=== PATIENT | male | born 1935 | race Two or more races ===

== ENCOUNTER 2017-06-21 20:20 | Inpatient (IN) | payer MEDICARE, OTHER ==
[~2017-06-21] VITALS: Ht 170.2 cm; Wt 78.5 kg
[~2017-06-21 20:20] MED LIST: METFORMIN HCL500 M1 ORAL
[2017-06-21 21:23] LABS: EOSINOPHILS % (AUTO) 0.3 % (0.0-3.0); HEMATOCRIT 51.4 % (42.0-52.0); HEMOGLOBIN 17.6 G/DL (14.2-18.0); LYMPHOCYTES % (AUTO) 8.6 % (20.0-45.0); MEAN CORPUSCULAR VOLUME 83 FL (80-99); MONOCYTES % (AUTO) 6.5 % (1.0-10.0); NEUTROPHILS % (AUTO) 83.6 % (45.0-75.0); PLATELET COUNT 229 K/UL (150-450); RED BLOOD COUNT 6.22 M/UL (4.70-6.10); RED CELL DISTRIBUTION WIDTH 12.2 % (11.6-14.8)
[2017-06-21 21:28] LABS: ANION GAP 11 mmol/L (5-15); BLOOD UREA NITROGEN 17 mg/dL (7-18); CALCIUM 8.9 MG/DL (8.5-10.1); CARBON DIOXIDE 26 MMOL/L (21-32); CHLORIDE 107 MMOL/L (98-107); CREATININE 1.4 MG/DL (0.55-1.30); INR 1.1 (0.9-1.1); POTASSIUM 3.6 MMOL/L (3.5-5.1); SODIUM 143 MMOL/L (136-145)
[2017-06-21 21:33] LABS: ALANINE AMINOTRANSFERASE 36 U/L (12-78); ALBUMIN 3.6 G/DL (3.4-5.0); ALBUMIN/GLOBULIN RATIO 0.9 (1.0-2.7); ALKALINE PHOSPHATASE 102 U/L (46-116); ASPARTATE AMINO TRANSFERASE 22 U/L (15-37); BILIRUBIN,TOTAL 0.5 MG/DL (0.2-1.0)
[2017-06-21] MEDS ORDERED: Morphine Sulfate 2mg/ml Inj IVP PRN (22:30)
[2017-06-21] MEDS ORDERED: Zolpidem 5mg tab ORAL PRN (22:30)
[2017-06-21] MEDS ORDERED: Miralax 17gm pkt ORAL PRN (22:30)
[2017-06-21] MEDS ORDERED: LORazepam Inj 2mg/ml 1ml IV PRN (22:30)
[2017-06-21] MEDS ORDERED: Mylanta II UD 30ml ORAL PRN (22:30)
[2017-06-21] MEDS ORDERED: Lidocaine 1% 10mg/ml/Epi 0.005mg/ml 30ml vial INJ ONE (22:30)
[2017-06-21] MEDS ORDERED: Bacitracin Oint UD TOPIC ONE (23:24)
--- NOTE | 2017-06-21 23:29 | Emergency Room Report ---
History of Present Illness General Chief Complaint: Laceration Source: Patient Present Illness HPI Patient is an 81-year-old male brought in by EMS after increased facial pain. Patient had reportedly fallen. He does not recall events. The patient states that he might have lost his balance. He denies any os of consciousness. History is limited by patient's mental status and poor historian. The patient states he lives alone and his is . He states he has children who live in [place]. Allergies: Coded Allergies: No Known Allergies (Unverified , 06/21/17) Patient History Past Medical History: unable to obtain Reviewed Nursing Documentation: PMH: Agreed; PSxH: Agreed Nursing Documentation-PMH Hx Diabetes: Yes Review of Systems All Other Systems: limited - by poor historian Physical Exam Vital Signs Date Time Temp Pulse Resp B/P (MAP) Pulse Ox O2 Delivery O2 Flow Rate FiO2 06/21/17 20:05 98.5 118 18 149/87 97 Room Air 98.4 Sp02 EP Interpretation: reviewed, normal General Appearance: normal inspection, alert, no apparent distress, GCS 15 Head: normocephalic, atraumatic Eyes: normal eye exam, PERRL, EOMI, lids + conjunctiva normal, no hyphema, no racoon eyes ENT: normal ENT inspection, TMs + canals normal, oropharynx normal, no osei signs Neck: trach midline, no bony tend, full range of motion without pain Respiratory: effort normal, no retractions, clear to auscultation, chest symmetrical, palpation of chest normal, speaking in full sentences Cardiovascular: regular rate, rhythm, no JVD Cardiovascular #2: 2+ radial (R), 2+ radial (L), 2+ dorsalis pedis (R), 2+ dorsalis pedis (L) Gastrointestinal: normal inspection, non-tender, non-distended, no rebound/ guarding, normal bowel sounds Genitourinary: normal inspection Musculoskeletal: normal ROM, non-tender, back normal Skin: normal palpation, other - lip laceration, 3 cm into muscle Lymphatic: normal inspection Neurologic: normal inspection, CN II-XII intact, oriented x3, sensory intact, motor strength/tone normal, normal speech Psychiatric: normal inspection, memory normal, mood normal, no suicidal/ homicidal ideation Procedures Laceration/Wound Repair Laceration/Wound Repair : Consent: Emergent Wound Location: face Wound's Depth, Shape: into muscle, stellate Wound Length (cm): 3 Wound Explored: clean Irrigated w/ Saline (ccs): 100 Betadine Prep?: Yes Anesthesia: Lidocaine w/ Epi Volume Anesthetic (ccs): 10 Wound Debrided: minimal Wound Repaired With: sutures Suture Size/Type: 5:0 Number of Sutures: 9 Layer Closure?: Yes Deep Layer Suture Size/Type: 5:0 Number Deep Layer Sutures: 5 Sterile Dressing Applied?: Yes Patient Tolerated: Well Complications: None Medical Decision Making Diagnostic Impression: Primary Impression: Fall Additional Impressions: Facial laceration Contusion of head ER Course Patient presented for fall.Differential diagnosis included was not limited to neck fracture, CVA, close head injury, syncopal episode, basilar ischemia. Because of complexity of patient's case laboratory testing and imaging studies were ordered. The CT the head read by radiology showed no evidence of acute hemorrhage or CVA. CT of facial bones read by radiology showed no evidence of acute fracture. The patient's facial laceration was irrigated and closed with 2 layers. Patient tolerated this well.Patient was noted to be somewhat confused. The patient states he lives alone. Dr. Warren Salazar was contacted for inpatient management due to need for monitoring and rechecks mental status Labs Test 06/21/17 20:55 White Blood Count 13.0 K/UL (4.8-10.8) Red Blood Count 6.22 M/UL (4.70-6.10) Hemoglobin 17.6 G/DL (14.2-18.0) Hematocrit 51.4 % (42.0-52.0) Mean Corpuscular Volume 83 FL (80-99) Mean Corpuscular Hemoglobin 28.3 PG (27.0-31.0) Mean Corpuscular Hemoglobin Concent 34.2 G/DL (32.0-36.0) Red Cell Distribution Width 12.2 % (11.6-14.8) Platelet Count 229 K/UL (150-450) Mean Platelet Volume 6.7 FL (6.5-10.1) Neutrophils (%) (Auto) 83.6 % (45.0-75.0) Lymphocytes (%) (Auto) 8.6 % (20.0-45.0) Monocytes (%) (Auto) 6.5 % (1.0-10.0) Eosinophils (%) (Auto) 0.3 % (0.0-3.0) Basophils (%) (Auto) 1.0 % (0.0-2.0) Prothrombin Time 11.7 SEC (9.30-11.50) Prothromb Time International Ratio 1.1 (0.9-1.1) Activated Partial Thromboplast Time 26 SEC (23-33) Sodium Level 143 MMOL/L (136-145) Potassium Level 3.6 MMOL/L (3.5-5.1) Chloride Level 107 MMOL/L (98-107) Carbon Dioxide Level 26 MMOL/L (21-32) Anion Gap 11 mmol/L (5-15) Blood Urea Nitrogen 17 mg/dL (7-18) Creatinine 1.4 MG/DL (0.55-1.30) Estimat Glomerular Filtration Rate mL/min (>60) Glucose Level 185 MG/DL (74-106) Calcium Level 8.9 MG/DL (8.5-10.1) Total Bilirubin 0.5 MG/DL (0.2-1.0) Aspartate Amino Transf (AST/SGOT) 22 U/L (15-37) Alanine Aminotransferase (ALT/SGPT) 36 U/L (12-78) Alkaline Phosphatase 102 U/L (46-116) Total Protein 7.7 G/DL (6.4-8.2) Albumin 3.6 G/DL (3.4-5.0) Globulin 4.1 g/dL Albumin/Globulin Ratio 0.9 (1.0-2.7) Last Vital Signs Date Time Temp Pulse Resp B/P (MAP) Pulse Ox O2 Delivery O2 Flow Rate FiO2 06/21/17 20:05 98.5 118 18 149/87 97 Room Air 98.4 Status: unchanged Disposition: PLACE IN OBSERVATION Condition: Serious Referrals: NOT CHOSEN DIEGO/,REFERRING (PCP) Neo Matos Jun 21, 2017 23:29
[2017-06-21 23:38] VITALS: BP 180/90
[2017-06-22] VITALS (7 sets, daily range): BP systolic 140–164; BP diastolic 70–85
[2017-06-22] MEDS: NovoLOG Insulin Flexpen SUBQ SCH ×4 (06:05→20:53)
[2017-06-22 07:53] LABS: BASOPHILS % (AUTO) 0.5 % (0.0-2.0); HEMATOCRIT 47.8 % (42.0-52.0); HEMOGLOBIN 16.4 G/DL (14.2-18.0); LYMPHOCYTES % (AUTO) 17.1 % (20.0-45.0); MEAN CORPUSCULAR VOLUME 83 FL (80-99); MONOCYTES % (AUTO) 8.9 % (1.0-10.0); NEUTROPHILS % (AUTO) 72.5 % (45.0-75.0); PLATELET COUNT 218 K/UL (150-450); RED BLOOD COUNT 5.76 M/UL (4.70-6.10); RED CELL DISTRIBUTION WIDTH 11.9 % (11.6-14.8); WHITE BLOOD COUNT 10.3 K/UL (4.8-10.8)
[2017-06-22 08:13] LABS: ALANINE AMINOTRANSFERASE 32 U/L (12-78); ALBUMIN 3.1 G/DL (3.4-5.0); ALBUMIN/GLOBULIN RATIO 0.8 (1.0-2.7); ALKALINE PHOSPHATASE 83 U/L (46-116); ANION GAP 7 mmol/L (5-15); ASPARTATE AMINO TRANSFERASE 25 U/L (15-37); BILIRUBIN,TOTAL 0.8 MG/DL (0.2-1.0); BLOOD UREA NITROGEN 12 mg/dL (7-18); CALCIUM 8.5 MG/DL (8.5-10.1); CARBON DIOXIDE 30 MMOL/L (21-32); CHLORIDE 106 MMOL/L (98-107); CHOLESTEROL 113 MG/DL (< 200); HDL CHOLESTEROL 50 MG/DL (40-60); POTASSIUM 3.3 MMOL/L (3.5-5.1); SODIUM 143 MMOL/L (136-145); TRIGLYCERIDES 29 MG/DL (30-150)
[2017-06-22] MEDS: Heparin 5000 units/ml inj SUBQ SCH ×2 (08:50→20:54)
--- NOTE | 2017-06-22 09:55 | Diagnostic Imaging Report ---
Indications: Separate Technique: Spiral acquisitions obtained through the brain. Angled axial and coronal 5 x 5 mm slices were reconstructed. Total dose length product 1446.06 mGycm. CTDI vol(s) 70.38 mGy. Dose reduction achieved using automated exposure control Comparison: No Findings: No acute intracranial hemorrhage or edema. No mass effect or midline shift. There is age-related enlargement of the ventricles and extra axial CSF spaces. There is encephalomalacia of the posterior left frontal lobe. There is periventricular deep white matter low attenuation, consistent with chronic ischemic change. 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 The sinuses are clear. There is evidence of prior bilateral cataract surgery. Impression: Chronic and age-related changes as described, including old infarcts Negative for acute intracranial bleed or mass effect This agrees with the preliminary interpretation provided overnight by [facility]erad[facility] service. The CT scanner at [facility] is accredited by the [employer] and the scans are performed using protocols designed to limit radiation exposure to as low as reasonably achievable to attain images of sufficient resolution adequate for diagnostic evaluation.
--- NOTE | 2017-06-22 09:58 | Diagnostic Imaging Report ---
Indications: Pain Technique: Spiral images obtained through the facial bones. No IV contrast utilized. Multiplanar reconstructions were generated.Total dose length product 607.04 mGycm. CTDIvol(s) 28.19 mGy. Dose reduction achieved using automated exposure control Comparison: none Findings: There is evidence of soft tissue trauma to the upper lip. No acute fractures. No worrisome sinus opacification. There is minimal ethmoid sinus mucosal disease. The optic globes are intact. There is evidence of bilateral prior cataract surgery. Patient is edentulous. Impression: Evidence of soft tissue trauma as described No acute bony trauma Minimal sinus disease This agrees with the preliminary interpretation provided overnight by [facility] service. The CT scanner at [facility] is accredited by the [employer] and the scans are performed using protocols designed to limit radiation exposure to as low as reasonably achievable to attain images of sufficient resolution adequate for diagnostic evaluation.
--- NOTE | 2017-06-22 12:11 | Consultation ---
History of Present Illness General Date patient seen: Jun 22, 2017 Chief Complaint: AMS Present Illness HPI the pt is an 81 yo male with hx of mmp possible alcohol use came to er after a fall the pt apparently was confused and was a poor historian. the pt was aaox4 during my eval and was unable to recall the fall. the pt stated that he lives alone and all his family live in [facility]. the pts head ct was consistent with mini infarcts and senile changes. the pt has impairment of memory. The pt denied drinking alcohol on a daily basis. the pt has poor insight and minimizes his situation. the pts passed four years ago and the pt feels lonely. He endorses depressed mood, anhedonia and low energy. Allergies: Coded Allergies: No Known Allergies (Unverified , 06/21/17) Medication History Scheduled Metformin Hcl* (Metformin Hcl*), 500 MG ORAL TWICE A DAY, (Reported) Patient History Limited by: medical condition History Provided By: Patient, Medical Record, PMD Healthcare decision maker Resuscitation status Full Code Advanced Directive on File Past Medical/Surgical History Past Medical/Surgical History: (1) Acute encephalopathy (2) Fall (3) Facial laceration (4) Contusion of head Review of Systems Psychiatric: Reports: anxiety, depressed feelings, emotional problems Physical Exam General Appearance: WD/WN, no apparent distress, alert Neurologic: oriented x 3, responsive, depressed affect Last 24 Hour Vital Signs Date Time Temp Pulse Resp B/P (MAP) Pulse Ox O2 Delivery O2 Flow Rate FiO2 06/22/17 08:00 97.7 79 20 142/71 95 Room Air 97.7 06/22/17 07:02 163/85 06/22/17 04:00 97.3 83 20 163/85 95 Room Air 97.3 06/22/17 00:30 97.3 83 16 163/83 96 Room Air 06/22/17 00:09 97.3 83 16 163/83 96 Room Air 97.3 06/22/17 00:00 97.4 78 20 164/85 96 Room Air 97.4 06/21/17 23:38 97.3 89 14 180/90 95 Room Air 97.3 06/21/17 20:05 98.5 118 18 149/87 97 Room Air 98.4 Intake and Output 06/21/17 06/22/17 19:00 07:00 Intake Total 260 ml Balance 260 ml Intake Oral 260 ml # Voids 1 Laboratory Tests Test 06/21/17 20:55 06/22/17 06:35 White Blood Count 13.0 K/UL (4.8-10.8) H 10.3 K/UL (4.8-10.8) Red Blood Count 6.22 M/UL (4.70-6.10) H 5.76 M/UL (4.70-6.10) Hemoglobin 17.6 G/DL (14.2-18.0) 16.4 G/DL (14.2-18.0) Hematocrit 51.4 % (42.0-52.0) 47.8 % (42.0-52.0) Mean Corpuscular Volume 83 FL (80-99) 83 FL (80-99) Mean Corpuscular Hemoglobin 28.3 PG (27.0-31.0) 28.5 PG (27.0-31.0) Mean Corpuscular Hemoglobin Concent 34.2 G/DL (32.0-36.0) 34.3 G/DL (32.0-36.0) Red Cell Distribution Width 12.2 % (11.6-14.8) 11.9 % (11.6-14.8) Platelet Count 229 K/UL (150-450) 218 K/UL (150-450) Mean Platelet Volume 6.7 FL (6.5-10.1) 7.2 FL (6.5-10.1) Neutrophils (%) (Auto) 83.6 % (45.0-75.0) H 72.5 % (45.0-75.0) Lymphocytes (%) (Auto) 8.6 % (20.0-45.0) L 17.1 % (20.0-45.0) L Monocytes (%) (Auto) 6.5 % (1.0-10.0) 8.9 % (1.0-10.0) Eosinophils (%) (Auto) 0.3 % (0.0-3.0) 1.0 % (0.0-3.0) Basophils (%) (Auto) 1.0 % (0.0-2.0) 0.5 % (0.0-2.0) Prothrombin Time 11.7 SEC (9.30-11.50) H Prothromb Time International Ratio 1.1 (0.9-1.1) Activated Partial Thromboplast Time 26 SEC (23-33) Sodium Level 143 MMOL/L (136-145) 143 MMOL/L (136-145) Potassium Level 3.6 MMOL/L (3.5-5.1) 3.3 MMOL/L (3.5-5.1) L Chloride Level 107 MMOL/L (98-107) 106 MMOL/L (98-107) Carbon Dioxide Level 26 MMOL/L (21-32) 30 MMOL/L (21-32) Anion Gap 11 mmol/L (5-15) 7 mmol/L (5-15) Blood Urea Nitrogen 17 mg/dL (7-18) 12 mg/dL (7-18) Creatinine 1.4 MG/DL (0.55-1.30) H 1.0 MG/DL (0.55-1.30) Estimat Glomerular Filtration Rate mL/min (>60) mL/min (>60) Glucose Level 185 MG/DL (74-106) H 119 MG/DL (74-106) H Calcium Level 8.9 MG/DL (8.5-10.1) 8.5 MG/DL (8.5-10.1) Total Bilirubin 0.5 MG/DL (0.2-1.0) 0.8 MG/DL (0.2-1.0) Aspartate Amino Transf (AST/SGOT) 22 U/L (15-37) 25 U/L (15-37) Alanine Aminotransferase (ALT/SGPT) 36 U/L (12-78) 32 U/L (12-78) Alkaline Phosphatase 102 U/L (46-116) 83 U/L (46-116) Total Protein 7.7 G/DL (6.4-8.2) 6.8 G/DL (6.4-8.2) Albumin 3.6 G/DL (3.4-5.0) 3.1 G/DL (3.4-5.0) L Globulin 4.1 g/dL 3.7 g/dL Albumin/Globulin Ratio 0.9 (1.0-2.7) L 0.8 (1.0-2.7) L Triglycerides Level 29 MG/DL (30-150) L Cholesterol Level 113 MG/DL (< 200) LDL Cholesterol 66 mg/dL (<100) HDL Cholesterol 50 MG/DL (40-60) Cholesterol/HDL Ratio 2.3 (3.3-4.4) L Height (Feet): 5 Height (Inches): 7.00 Weight (Pounds): 173 Medications Current Medications Medications (Trade) Dose Ordered Sig/Gracie Route PRN Reason Start Time Stop Time Status Last Admin Dose Admin Acetaminophen (Tylenol) 650 mg Q4H PRN ORAL fever 06/21/17 22:30 07/21/17 22:29 Al Hydroxide/Mg Hydroxide (Mylanta II) 30 ml Q6H PRN ORAL dyspepsia 06/21/17 22:30 07/21/17 22:29 Clonidine HCl (Catapres Tab) 0.1 mg Q6H PRN ORAL For High Blood Pressure 06/22/17 07:00 07/22/17 06:59 06/22/17 07:02 Dextrose (Dextrose 50%) STAT PRN IV Hypoglycemia 06/21/17 22:30 07/21/17 22:29 Dextrose (Dextrose 50%) STAT PRN IV Hypoglycemia 06/21/17 22:30 07/21/17 22:29 Heparin Sodium (Porcine) (Heparin 5000 units/ml) 5,000 units EVERY 12 HOURS SUBQ 06/22/17 09:00 07/22/17 08:59 06/22/17 08:50 Insulin Aspart (NovoLOG) BEFORE MEALS AND HS SUBQ 06/22/17 06:30 07/22/17 06:29 06/22/17 06:05 Lorazepam (Ativan 2mg/ml 1ml) 0.5 mg Q4H PRN IV For Anxiety 06/21/17 22:30 06/28/17 22:29 Morphine Sulfate (Morphine Sulfate) 1 mg EVERY 4 HOURS PRN IVP For Pain 06/21/17 22:30 06/28/17 22:29 Ondansetron HCl (Zofran) 4 mg Q6H PRN IVP Nausea & Vomiting 06/21/17 22:30 07/21/17 22:29 Polyethylene Glycol (Miralax) 17 gm HSPRN PRN ORAL Constipation 06/21/17 22:30 07/21/17 22:29 Zolpidem Tartrate (Ambien) 5 mg HSPRN PRN ORAL Insomnia 06/21/17 22:30 06/28/17 22:29 Assessment/Plan Status: stable Assessment/Plan encephalopathy improved\ mdd cognitive impairment ?alcohol abuse? prozac 20mg qam valium prn and will start thiamine and folate Cecilio Singh M.D. Jun 22, 2017 12:11
[2017-06-22] MEDS ORDERED: Morphine Sulfate 4mg/ml Inj IVP PRN (13:00)
--- NOTE | 2017-06-22 15:07 | Consultation ---
History of Present Illness General Date patient seen: Jun 22, 2017 Chief Complaint: Laceration Referring physician: dr Salazar Reason for Consultation: inpatient management Present Illness HPI 81-year-old male with hx of DM brought in by EMS after increased facial pain after an accidental fall. He does not recall events. The patient states that he might have lost his balance. He denies any os of consciousness. History is limited by patient's mental status and poor historian. The patient states he lives alone and his is . He states he has children who live in [place]. Allergies: Coded Allergies: No Known Allergies (Unverified , 06/21/17) Medication History Scheduled Metformin Hcl* (Metformin Hcl*), 500 MG ORAL TWICE A DAY, (Reported) Patient History Healthcare decision maker Resuscitation status Full Code Advanced Directive on File Past Medical/Surgical History Past Medical/Surgical History: (1) Diabetes mellitus Review of Systems All Other Systems: negative except mentioned in HPI Physical Exam General Appearance: WD/WN Lines, tubes and drains: peripheral HEENT: normocephalic, atraumatic Neck: non-tender, normal alignment Respiratory/Chest: chest wall non-tender, lungs clear Breasts: no masses Cardiovascular/Chest: normal rate Abdomen: non tender, soft Genitourinary/Rectal: normal genital exam Extremities: normal range of motion Skin Exam: normal pigmentation Last 24 Hour Vital Signs Date Time Temp Pulse Resp B/P (MAP) Pulse Ox O2 Delivery O2 Flow Rate FiO2 06/22/17 12:00 98.0 81 18 140/70 97 Room Air 98.0 06/22/17 08:00 97.7 79 20 142/71 95 Room Air 97.7 06/22/17 07:02 163/85 06/22/17 04:00 97.3 83 20 163/85 95 Room Air 97.3 06/22/17 00:30 97.3 83 16 163/83 96 Room Air 06/22/17 00:09 97.3 83 16 163/83 96 Room Air 97.3 06/22/17 00:00 97.4 78 20 164/85 96 Room Air 97.4 06/21/17 23:38 97.3 89 14 180/90 95 Room Air 97.3 06/21/17 20:05 98.5 118 18 149/87 97 Room Air 98.4 Intake and Output 06/21/17 06/22/17 19:00 07:00 Intake Total 260 ml Balance 260 ml Intake Oral 260 ml # Voids 1 Laboratory Tests Test 06/21/17 20:55 06/22/17 06:35 White Blood Count 13.0 K/UL (4.8-10.8) H 10.3 K/UL (4.8-10.8) Red Blood Count 6.22 M/UL (4.70-6.10) H 5.76 M/UL (4.70-6.10) Hemoglobin 17.6 G/DL (14.2-18.0) 16.4 G/DL (14.2-18.0) Hematocrit 51.4 % (42.0-52.0) 47.8 % (42.0-52.0) Mean Corpuscular Volume 83 FL (80-99) 83 FL (80-99) Mean Corpuscular Hemoglobin 28.3 PG (27.0-31.0) 28.5 PG (27.0-31.0) Mean Corpuscular Hemoglobin Concent 34.2 G/DL (32.0-36.0) 34.3 G/DL (32.0-36.0) Red Cell Distribution Width 12.2 % (11.6-14.8) 11.9 % (11.6-14.8) Platelet Count 229 K/UL (150-450) 218 K/UL (150-450) Mean Platelet Volume 6.7 FL (6.5-10.1) 7.2 FL (6.5-10.1) Neutrophils (%) (Auto) 83.6 % (45.0-75.0) H 72.5 % (45.0-75.0) Lymphocytes (%) (Auto) 8.6 % (20.0-45.0) L 17.1 % (20.0-45.0) L Monocytes (%) (Auto) 6.5 % (1.0-10.0) 8.9 % (1.0-10.0) Eosinophils (%) (Auto) 0.3 % (0.0-3.0) 1.0 % (0.0-3.0) Basophils (%) (Auto) 1.0 % (0.0-2.0) 0.5 % (0.0-2.0) Prothrombin Time 11.7 SEC (9.30-11.50) H Prothromb Time International Ratio 1.1 (0.9-1.1) Activated Partial Thromboplast Time 26 SEC (23-33) Sodium Level 143 MMOL/L (136-145) 143 MMOL/L (136-145) Potassium Level 3.6 MMOL/L (3.5-5.1) 3.3 MMOL/L (3.5-5.1) L Chloride Level 107 MMOL/L (98-107) 106 MMOL/L (98-107) Carbon Dioxide Level 26 MMOL/L (21-32) 30 MMOL/L (21-32) Anion Gap 11 mmol/L (5-15) 7 mmol/L (5-15) Blood Urea Nitrogen 17 mg/dL (7-18) 12 mg/dL (7-18) Creatinine 1.4 MG/DL (0.55-1.30) H 1.0 MG/DL (0.55-1.30) Estimat Glomerular Filtration Rate mL/min (>60) mL/min (>60) Glucose Level 185 MG/DL (74-106) H 119 MG/DL (74-106) H Calcium Level 8.9 MG/DL (8.5-10.1) 8.5 MG/DL (8.5-10.1) Total Bilirubin 0.5 MG/DL (0.2-1.0) 0.8 MG/DL (0.2-1.0) Aspartate Amino Transf (AST/SGOT) 22 U/L (15-37) 25 U/L (15-37) Alanine Aminotransferase (ALT/SGPT) 36 U/L (12-78) 32 U/L (12-78) Alkaline Phosphatase 102 U/L (46-116) 83 U/L (46-116) Total Protein 7.7 G/DL (6.4-8.2) 6.8 G/DL (6.4-8.2) Albumin 3.6 G/DL (3.4-5.0) 3.1 G/DL (3.4-5.0) L Globulin 4.1 g/dL 3.7 g/dL Albumin/Globulin Ratio 0.9 (1.0-2.7) L 0.8 (1.0-2.7) L Triglycerides Level 29 MG/DL (30-150) L Cholesterol Level 113 MG/DL (< 200) LDL Cholesterol 66 mg/dL (<100) HDL Cholesterol 50 MG/DL (40-60) Cholesterol/HDL Ratio 2.3 (3.3-4.4) L Height (Feet): 5 Height (Inches): 7.00 Weight (Pounds): 173 Medications Current Medications Medications (Trade) Dose Ordered Sig/Gracie Route PRN Reason Start Time Stop Time Status Last Admin Dose Admin Acetaminophen (Tylenol) 650 mg Q4H PRN ORAL fever 06/21/17 22:30 07/21/17 22:29 Al Hydroxide/Mg Hydroxide (Mylanta II) 30 ml Q6H PRN ORAL dyspepsia 06/21/17 22:30 07/21/17 22:29 Clonidine HCl (Catapres Tab) 0.1 mg Q6H PRN ORAL For High Blood Pressure 06/22/17 07:00 07/22/17 06:59 06/22/17 07:02 Dextrose (Dextrose 50%) STAT PRN IV Hypoglycemia 06/21/17 22:30 07/21/17 22:29 Dextrose (Dextrose 50%) STAT PRN IV Hypoglycemia 06/21/17 22:30 07/21/17 22:29 Diazepam (Valium) 10 mg Q6H PRN ORAL For Anxiety 06/22/17 13:00 06/29/17 12:59 Fluoxetine HCl (PROzac) 20 mg DAILY ORAL 06/23/17 09:00 07/23/17 08:59 Folic Acid (Folate) 1 mg DAILY ORAL 06/23/17 09:00 07/23/17 08:59 Heparin Sodium (Porcine) (Heparin 5000 units/ml) 5,000 units EVERY 12 HOURS SUBQ 06/22/17 09:00 07/22/17 08:59 06/22/17 08:50 Insulin Aspart (NovoLOG) BEFORE MEALS AND HS SUBQ 06/22/17 06:30 07/22/17 06:29 06/22/17 12:32 Morphine Sulfate (Morphine Sulfate) 1 mg Q4H PRN IVP Pain 06/22/17 13:00 06/28/17 12:59 Ondansetron HCl (Zofran) 4 mg Q6H PRN IVP Nausea & Vomiting 06/21/17 22:30 07/21/17 22:29 Polyethylene Glycol (Miralax) 17 gm HSPRN PRN ORAL Constipation 06/21/17 22:30 07/21/17 22:29 Thiamine HCl (Vitamin B1) 100 mg DAILY ORAL 06/23/17 09:00 07/23/17 08:59 Zolpidem Tartrate (Ambien) 5 mg HSPRN PRN ORAL Insomnia 06/21/17 22:30 06/28/17 22:29 Assessment/Plan Problem List: (1) Acute encephalopathy ICD Codes: G93.40 - Encephalopathy, unspecified SNOMED: 26164838, 173881712 (2) ATN (acute tubular necrosis) ICD Codes: N17.0 - Acute kidney failure with tubular necrosis SNOMED: 72983058 (3) Facial laceration ICD Codes: S01.81XA - Laceration without foreign body of other part of head, initial encounter SNOMED: 720751041 (4) Contusion of head ICD Codes: S00.93XA - Contusion of unspecified part of head, initial encounter SNOMED: 708173975, 084720631 (5) Diabetes mellitus ICD Codes: E11.9 - Type 2 diabetes mellitus without complications SNOMED: 92672890 Assessment/Plan renal studies renal US iv fluids check electrolytes sliding scale diabetic diet symptomatic treatment Vimal Campbell MD Jun 22, 2017 15:07
--- NOTE | 2017-06-22 18:22 | History & Physical ---
History and Physical History & Physicial Dictated for Int Med-[id number]. JORDAN MURRIETA Jun 22, 2017 18:22
[2017-06-23] VITALS (7 sets, daily range): BP systolic 134–185; BP diastolic 60–98
--- NOTE | 2017-06-23 03:45 | History and Physical Report ---
DATE OF ADMISSION: 06/21/2017 CHIEF COMPLAINT: The patient is an 81-year-old male, presents with chief complaint of fall injury. HISTORY OF PRESENT ILLNESS: The patient lives alone. The patient states he was coming through the door entering the house. The patient states he tripped while entering the door. The patient fell striking his face. The patient passed out. It is unknown how long the patient was out. The patient was found by his neighbor. EMS was called. The patient was transferred to [facility]. The patient was found to have an upper lip laceration. This was repaired in the emergency room. The patient presents with chief complaint of fall injury, secondary to trip and fall. PAST MEDICAL HISTORY: Significant for: 1. Type 2 diabetes. 2. Hypertension. PAST SURGICAL HISTORY: The patient denies. CURRENT MEDICATIONS: Metformin 500 mg one tablet p.o. twice daily. ALLERGIES: No known drug allergies. SOCIAL HISTORY: The patient is a and lives alone. The patient denies tobacco use. The patient admits to rare alcohol use. REVIEW OF SYSTEMS: CONSTITUTIONAL: The patient denies weight loss or weight gain. The patient denies fevers or chills. HEENT: The patient denies ear or throat pain. The patient complains of laceration of the upper lip as above. CARDIOVASCULAR: The patient denies palpitations or chest pain. CHEST: The patient denies wheezes or shortness of breath. ABDOMEN: The patient denies nausea, vomiting, diarrhea, or constipation. GENITOURINARY: The patient denies dysuria or increased frequency of urination. NEUROMUSCULAR: The patient denies seizures or generalized weakness. The patient does complain of loss of consciousness as above. PHYSICAL EXAMINATION: GENERAL: The patient is a well-developed and well-nourished male, in no apparent distress. VITAL SIGNS: Temperature 97.3 degrees, respirations 16, pulse 83, and blood pressure 163/83. HEENT: Eyes, pupils are equal and responsive to light and accommodation. Extraocular movements are intact. NECK: Supple without lymphadenopathy. CHEST: Lungs are clear to auscultation bilaterally without wheezes or rales. CARDIOVASCULAR: Regular rate. S1 and S2 are normal without murmurs, rubs, or gallops. ABDOMEN: Soft, nontender, and nondistended. Positive bowel sounds. No evidence of hepatosplenomegaly. Currently, no rebound or guarding noted. EXTREMITIES: Negative for clubbing, cyanosis, or edema. RECTAL/GENITAL: Refused. NEUROLOGIC: Cranial nerves II through XII are grossly intact without focal deficits. Motor strength is 5/5 bilaterally. Deep tendon reflexes are 2+ plantar. LABORATORY AND DIAGNOSTIC DATA: WBC of 13.3, hemoglobin 17.6, hematocrit 51.4 and platelets 229,000. Sodium 143, potassium 3.6, chloride 107, CO2 26, BUN 17, creatinine 1.4, and glucose 185. CT scan of the head failed to demonstrate fracture. Facial bone series failed to demonstrate fracture. ASSESSMENT: This is an 81-year-old male with: 1. Trip and fall injury. 2. Laceration of the upper lip. 3. Diabetes type 2. 4. Hypertension. 5. Loss of consciousness of unknown time frame. TREATMENT: 1. Laceration of the upper lip. This was repaired in the emergency room. The patient will require suture removal in seven days. 2. Diabetes type 2. The patient has been placed on NovoLog sliding scale. 3. Hypertension. The patient has been placed empirically on lisinopril. Hemal Tolbert M.D. DR: LAVON JOB#: [id number] CC:
[2017-06-23] MEDS: NovoLOG Insulin Flexpen SUBQ SCH ×4 (06:14→20:53)
[2017-06-23 07:54] LABS: BASOPHILS % (AUTO) 0.6 % (0.0-2.0); EOSINOPHILS % (AUTO) 2.7 % (0.0-3.0); HEMATOCRIT 50.4 % (42.0-52.0); HEMOGLOBIN 17.4 G/DL (14.2-18.0); LYMPHOCYTES % (AUTO) 22.4 % (20.0-45.0); MEAN CORPUSCULAR VOLUME 83 FL (80-99); NEUTROPHILS % (AUTO) 66.3 % (45.0-75.0); PLATELET COUNT 213 K/UL (150-450); RED BLOOD COUNT 6.04 M/UL (4.70-6.10); WHITE BLOOD COUNT 7.6 K/UL (4.8-10.8)
[2017-06-23 08:25] LABS: ALANINE AMINOTRANSFERASE 33 U/L (12-78); ALBUMIN 3.1 G/DL (3.4-5.0); ALBUMIN/GLOBULIN RATIO 0.8 (1.0-2.7); ALKALINE PHOSPHATASE 84 U/L (46-116); ANION GAP 5 mmol/L (5-15); ASPARTATE AMINO TRANSFERASE 24 U/L (15-37); BILIRUBIN,TOTAL 0.7 MG/DL (0.2-1.0); BLOOD UREA NITROGEN 11 mg/dL (7-18); CALCIUM 8.4 MG/DL (8.5-10.1); CARBON DIOXIDE 30 MMOL/L (21-32); CHLORIDE 105 MMOL/L (98-107); CREATININE 1.1 MG/DL (0.55-1.30); PHOSPHORUS 2.9 MG/DL (2.5-4.9); POTASSIUM 3.4 MMOL/L (3.5-5.1); SODIUM 140 MMOL/L (136-145)
[2017-06-23] MEDS: Heparin 5000 units/ml inj SUBQ SCH ×2 (08:44→20:53)
[2017-06-23] MEDS: Thiamine 100mg tab ORAL SCH (08:44)
--- NOTE | 2017-06-23 13:51 | Pulmonology Progress Note ---
Assessment/Plan Problems: (1) Acute encephalopathy (2) ATN (acute tubular necrosis) (3) Facial laceration (4) Contusion of head (5) Diabetes mellitus Assessment/Plan improving wound care check electrolytes social service consult sliding scale diabetic diet. might need placement. Subjective ROS Limited/Unobtainable: No Constitutional: Reports: no symptoms HEENT: Repors: no symptoms Respiratory: Reports: no symptoms Allergies: Coded Allergies: No Known Allergies (Unverified , 06/21/17) Objective Last 24 Hour Vital Signs Date Time Temp Pulse Resp B/P (MAP) Pulse Ox O2 Delivery O2 Flow Rate FiO2 06/23/17 12:14 185/85 06/23/17 12:00 97.4 68 20 185/85 97 97.4 06/23/17 08:45 98.2 74 19 163/79 100 98.2 06/23/17 04:00 97.1 57 20 159/84 98 97.1 06/23/17 00:00 98.2 80 20 160/98 97 98.2 06/22/17 20:00 97.6 59 20 155/75 95 97.6 06/22/17 16:00 98.0 67 20 150/74 97 Room Air 98.0 Intake and Output 06/22/17 06/23/17 19:00 07:00 Intake Total 840 ml Balance 840 ml Intake Oral 840 ml # Voids 6 2 # Bowel Movements 1 Objective General Appearance: WN/WD HEENT: normocephalic, atraumatic Respiratory/Chest: chest wall non-tender, lungs clear Cardiovascular: normal rate, regular rhythm Abdomen: normal bowel sounds, soft, non tender, non distended Genitourinary: normal external genitalia Extremities: no cyanosis Skin: no rash 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, no motor/sensory deficits, alert Laboratory Tests 06/23/17 07:25: White Blood Count 7.6, Red Blood Count 6.04, Hemoglobin 17.4, Hematocrit 50.4, Mean Corpuscular Volume 83, Mean Corpuscular Hemoglobin 28.8, Mean Corpuscular Hemoglobin Concent 34.5, Red Cell Distribution Width 12.0, Platelet Count 213, Mean Platelet Volume 6.8, Neutrophils (%) (Auto) 66.3, Lymphocytes (%) (Auto) 22.4, Monocytes (%) (Auto) 8.0, Eosinophils (%) (Auto) 2.7, Basophils (%) (Auto ) 0.6, Sodium Level 140, Potassium Level 3.4L, Chloride Level 105, Carbon Dioxide Level 30, Anion Gap 5, Blood Urea Nitrogen 11, Creatinine 1.1, Estimat Glomerular Filtration Rate , Glucose Level 113H, Calcium Level 8.4L, Phosphorus Level 2.9, Magnesium Level 1.9, Total Bilirubin 0.7, Aspartate Amino Transf (AST /SGOT) 24, Alanine Aminotransferase (ALT/SGPT) 33, Alkaline Phosphatase 84, Total Protein 7.2, Albumin 3.1L, Globulin 4.1, Albumin/Globulin Ratio 0.8L Current Medications Medications (Trade) Dose Ordered Sig/Gracie Route PRN Reason Start Time Stop Time Status Last Admin Dose Admin Acetaminophen (Tylenol) 650 mg Q4H PRN ORAL fever 06/21/17 22:30 07/21/17 22:29 Al Hydroxide/Mg Hydroxide (Mylanta II) 30 ml Q6H PRN ORAL dyspepsia 06/21/17 22:30 07/21/17 22:29 Clonidine HCl (Catapres Tab) 0.1 mg Q6H PRN ORAL For High Blood Pressure 06/22/17 07:00 07/22/17 06:59 06/23/17 12:14 Dextrose (Dextrose 50%) STAT PRN IV Hypoglycemia 06/21/17 22:30 07/21/17 22:29 Dextrose (Dextrose 50%) STAT PRN IV Hypoglycemia 06/21/17 22:30 07/21/17 22:29 Diazepam (Valium) 10 mg Q6H PRN ORAL For Anxiety 06/22/17 13:00 06/29/17 12:59 06/22/17 15:50 Fluoxetine HCl (PROzac) 20 mg DAILY ORAL 06/23/17 09:00 07/23/17 08:59 06/23/17 08:44 Folic Acid (Folate) 1 mg DAILY ORAL 06/23/17 09:00 07/23/17 08:59 06/23/17 08:44 Heparin Sodium (Porcine) (Heparin 5000 units/ml) 5,000 units EVERY 12 HOURS SUBQ 06/22/17 09:00 07/22/17 08:59 06/23/17 08:44 Insulin Aspart (NovoLOG) BEFORE MEALS AND HS SUBQ 06/22/17 06:30 07/22/17 06:29 06/23/17 12:18 Morphine Sulfate (Morphine Sulfate) 1 mg Q4H PRN IVP Pain 06/22/17 13:00 06/28/17 12:59 Ondansetron HCl (Zofran) 4 mg Q6H PRN IVP Nausea & Vomiting 06/21/17 22:30 07/21/17 22:29 Polyethylene Glycol (Miralax) 17 gm HSPRN PRN ORAL Constipation 06/21/17 22:30 07/21/17 22:29 Thiamine HCl (Vitamin B1) 100 mg DAILY ORAL 06/23/17 09:00 07/23/17 08:59 06/23/17 08:44 Zolpidem Tartrate (Ambien) 5 mg HSPRN PRN ORAL Insomnia 06/21/17 22:30 06/28/17 22:29 06/22/17 20:51 Vimal Campbell MD Jun 23, 2017 13:51
[2017-06-23] MEDS ORDERED: VITAMIN D1000 UNI1 ORAL (14:33)
[2017-06-23] MEDS ORDERED: HYDROCHLOROTH12.5 M2 ORAL (14:36)
[2017-06-23] MEDS ORDERED: DONEPEZIL HCL10 MG ORAL (14:36)
--- NOTE | 2017-06-23 14:42 | Internal Med Progress Note ---
Subjective Date of Service: Jun 23, 2017 Physician Name Jordan Murrieta Attending Physician Warren Salazar MD Current Medications Medications (Trade) Dose Ordered Sig/Gracie Route PRN Reason Start Time Stop Time Status Last Admin Dose Admin Acetaminophen (Tylenol) 650 mg Q4H PRN ORAL fever 06/21/17 22:30 07/21/17 22:29 Al Hydroxide/Mg Hydroxide (Mylanta II) 30 ml Q6H PRN ORAL dyspepsia 06/21/17 22:30 07/21/17 22:29 Clonidine HCl (Catapres Tab) 0.1 mg Q6H PRN ORAL For High Blood Pressure 06/22/17 07:00 07/22/17 06:59 06/23/17 12:14 Dextrose (Dextrose 50%) STAT PRN IV Hypoglycemia 06/21/17 22:30 07/21/17 22:29 Dextrose (Dextrose 50%) STAT PRN IV Hypoglycemia 06/21/17 22:30 07/21/17 22:29 Diazepam (Valium) 10 mg Q6H PRN ORAL For Anxiety 06/22/17 13:00 06/29/17 12:59 06/22/17 15:50 Fluoxetine HCl (PROzac) 20 mg DAILY ORAL 06/23/17 09:00 07/23/17 08:59 06/23/17 08:44 Folic Acid (Folate) 1 mg DAILY ORAL 06/23/17 09:00 07/23/17 08:59 06/23/17 08:44 Heparin Sodium (Porcine) (Heparin 5000 units/ml) 5,000 units EVERY 12 HOURS SUBQ 06/22/17 09:00 07/22/17 08:59 06/23/17 08:44 Insulin Aspart (NovoLOG) BEFORE MEALS AND HS SUBQ 06/22/17 06:30 07/22/17 06:29 06/23/17 12:18 Morphine Sulfate (Morphine Sulfate) 1 mg Q4H PRN IVP Pain 06/22/17 13:00 06/28/17 12:59 Ondansetron HCl (Zofran) 4 mg Q6H PRN IVP Nausea & Vomiting 06/21/17 22:30 07/21/17 22:29 Polyethylene Glycol (Miralax) 17 gm HSPRN PRN ORAL Constipation 06/21/17 22:30 07/21/17 22:29 Thiamine HCl (Vitamin B1) 100 mg DAILY ORAL 06/23/17 09:00 07/23/17 08:59 06/23/17 08:44 Zolpidem Tartrate (Ambien) 5 mg HSPRN PRN ORAL Insomnia 06/21/17 22:30 06/28/17 22:29 06/22/17 20:51 Allergies: Coded Allergies: No Known Allergies (Unverified , 06/21/17) ROS Limited/Unobtainable: No Constitutional: Reports: no symptoms HEENT: Reports: no symptoms Cardiovascular: Reports: no symptoms Respiratory: Reports: no symptoms Gastrointestinal/Abdominal: Reports: no symptoms Genitourinary: Reports: no symptoms Neurologic/Psychiatric: Reports: no symptoms Subjective 81 YO M admitted with trip and fall injuries. Cover for [facility] -Dr Salazar. Patient's roomate, Wagner is here, states patient wandered away from home. Await SNF eval Objective Last Vital Signs Date Time Temp Pulse Resp B/P (MAP) Pulse Ox O2 Delivery O2 Flow Rate FiO2 06/23/17 12:14 185/85 06/23/17 12:00 97.4 68 20 97 97.4 06/22/17 16:00 Room Air General Appearance: WD/WN, no apparent distress, alert EENT: PERRL/EOMI, normal ENT inspection, TMs normal Neck: non-tender, normal alignment, supple, normal inspection Cardiovascular: normal peripheral pulses, normal rate, regular rhythm, no gallop/murmur, no JVD Respiratory/Chest: chest wall non-tender, lungs clear, normal breath sounds, no respiratory distress, no accessory muscle use Abdomen: normal bowel sounds, non tender, soft, no organomegaly, no mass Extremities: normal range of motion, non-tender 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 Skin: normal pigmentation, warm/dry Laboratory Tests Test 06/23/17 07:25 White Blood Count 7.6 K/UL (4.8-10.8) Red Blood Count 6.04 M/UL (4.70-6.10) Hemoglobin 17.4 G/DL (14.2-18.0) Hematocrit 50.4 % (42.0-52.0) Mean Corpuscular Volume 83 FL (80-99) Mean Corpuscular Hemoglobin 28.8 PG (27.0-31.0) Mean Corpuscular Hemoglobin Concent 34.5 G/DL (32.0-36.0) Red Cell Distribution Width 12.0 % (11.6-14.8) Platelet Count 213 K/UL (150-450) Mean Platelet Volume 6.8 FL (6.5-10.1) Neutrophils (%) (Auto) 66.3 % (45.0-75.0) Lymphocytes (%) (Auto) 22.4 % (20.0-45.0) Monocytes (%) (Auto) 8.0 % (1.0-10.0) Eosinophils (%) (Auto) 2.7 % (0.0-3.0) Basophils (%) (Auto) 0.6 % (0.0-2.0) Sodium Level 140 MMOL/L (136-145) Potassium Level 3.4 MMOL/L (3.5-5.1) L Chloride Level 105 MMOL/L (98-107) Carbon Dioxide Level 30 MMOL/L (21-32) Anion Gap 5 mmol/L (5-15) Blood Urea Nitrogen 11 mg/dL (7-18) Creatinine 1.1 MG/DL (0.55-1.30) Estimat Glomerular Filtration Rate mL/min (>60) Glucose Level 113 MG/DL (74-106) H Calcium Level 8.4 MG/DL (8.5-10.1) L Phosphorus Level 2.9 MG/DL (2.5-4.9) Magnesium Level 1.9 MG/DL (1.8-2.4) Total Bilirubin 0.7 MG/DL (0.2-1.0) Aspartate Amino Transf (AST/SGOT) 24 U/L (15-37) Alanine Aminotransferase (ALT/SGPT) 33 U/L (12-78) Alkaline Phosphatase 84 U/L (46-116) Total Protein 7.2 G/DL (6.4-8.2) Albumin 3.1 G/DL (3.4-5.0) L Globulin 4.1 g/dL Albumin/Globulin Ratio 0.8 (1.0-2.7) L Intake and Output 06/22/17 06/23/17 19:00 07:00 Intake Total 840 ml Balance 840 ml Intake Oral 840 ml # Voids 6 2 # Bowel Movements 1 Assessment/Plan Problem List: (1) Fall (2) Facial laceration (3) Contusion of head (4) Diabetes mellitus Assessment & Plan: Continue metformina and novolog sliding scale (5) HTN (hypertension) Assessment & Plan: Cont HCTZ (6) Alzheimer's dementia Assessment & Plan: Continue aricept Assessment/Plan Discharge planning: [facility] JORDAN MURRIETA Jun 23, 2017 14:42
[2017-06-23] MEDS: hydroCHLOROthiazide 12.5mg TAB ORAL SCH (17:15)
[2017-06-23] MEDS: metFORMIN 500mg tab ORAL SCH (17:15)
[2017-06-23] MEDS: Donepezil 10mg tab ORAL SCH (20:51)
[2017-06-24 04:00] VITALS: BP 157/61
[2017-06-24] MEDS: metFORMIN 500mg tab ORAL SCH ×2 (06:05→17:07)
[2017-06-24] MEDS: NovoLOG Insulin Flexpen SUBQ SCH ×4 (06:06→20:48)
[2017-06-24 08:00] VITALS: BP 188/96
[2017-06-24] MEDS: hydroCHLOROthiazide 12.5mg TAB ORAL SCH (08:16)
[2017-06-24] MEDS: Thiamine 100mg tab ORAL SCH (08:16)
[2017-06-24] MEDS: Heparin 5000 units/ml inj SUBQ SCH ×2 (08:19→20:47)
[2017-06-24 09:24] LABS: BASOPHILS % (AUTO) 0.8 % (0.0-2.0); EOSINOPHILS % (AUTO) 1.9 % (0.0-3.0); HEMOGLOBIN 16.5 G/DL (14.2-18.0); LYMPHOCYTES % (AUTO) 17.7 % (20.0-45.0); MEAN CORPUSCULAR VOLUME 84 FL (80-99); NEUTROPHILS % (AUTO) 73.7 % (45.0-75.0); PLATELET COUNT 197 K/UL (150-450); RED BLOOD COUNT 5.73 M/UL (4.70-6.10); RED CELL DISTRIBUTION WIDTH 12.1 % (11.6-14.8); WHITE BLOOD COUNT 7.4 K/UL (4.8-10.8)
[2017-06-24 09:46] LABS: ANION GAP 8 mmol/L (5-15); BLOOD UREA NITROGEN 14 mg/dL (7-18); CALCIUM 8.8 MG/DL (8.5-10.1); CARBON DIOXIDE 28 MMOL/L (21-32); CHLORIDE 101 MMOL/L (98-107); CREATININE 1.1 MG/DL (0.55-1.30); POTASSIUM 3.9 MMOL/L (3.5-5.1); SODIUM 136 MMOL/L (136-145)
--- NOTE | 2017-06-24 10:17 | General Progress Note ---
Subjective Allergies: Coded Allergies: No Known Allergies (Unverified , 06/21/17) Objective Last 24 Hour Vital Signs Date Time Temp Pulse Resp B/P (MAP) Pulse Ox O2 Delivery O2 Flow Rate FiO2 06/24/17 08:16 188/96 06/24/17 08:00 98.1 77 19 188/96 98 Room Air 98.1 06/24/17 04:00 97.6 64 20 157/61 96 Room Air 97.6 06/23/17 23:55 97.2 62 20 134/60 98 Room Air 97.2 06/23/17 20:00 Room Air 06/23/17 20:00 98.1 69 20 151/81 96 98.1 06/23/17 16:00 97.8 69 19 154/71 97 97.8 06/23/17 12:14 185/85 06/23/17 12:00 97.4 68 20 185/85 97 97.4 Intake and Output 06/23/17 06/24/17 19:00 07:00 Intake Total 2635 ml 600 ml Balance 2635 ml 600 ml Intake Oral 635 ml 600 ml Other 2000 ml # Voids 3 4 # Bowel Movements 1 Laboratory Tests 06/24/17 08:45: White Blood Count 7.4, Red Blood Count 5.73, Hemoglobin 16.5, Hematocrit 48.0, Mean Corpuscular Volume 84, Mean Corpuscular Hemoglobin 28.8, Mean Corpuscular Hemoglobin Concent 34.4, Red Cell Distribution Width 12.1, Platelet Count 197, Mean Platelet Volume 6.8, Neutrophils (%) (Auto) 73.7, Lymphocytes (%) (Auto) 17.7L, Monocytes (%) (Auto) 6.0, Eosinophils (%) (Auto) 1.9, Basophils (%) (Auto ) 0.8, Sodium Level 136, Potassium Level 3.9, Chloride Level 101, Carbon Dioxide Level 28, Anion Gap 8, Blood Urea Nitrogen 14, Creatinine 1.1, Estimat Glomerular Filtration Rate , Glucose Level 146H, Calcium Level 8.8 Height (Feet): 5 Height (Inches): 7.00 Weight (Pounds): 173 Cecilio Singh M.D. Jun 24, 2017 10:16
[2017-06-24 12:46] VITALS: BP 147/80
--- NOTE | 2017-06-24 14:09 | Pulmonology Progress Note ---
Assessment/Plan Problems: (1) Acute encephalopathy (2) ATN (acute tubular necrosis) (3) Facial laceration (4) Contusion of head (5) Diabetes mellitus Assessment/Plan improving wound care check electrolytes social service consult sliding scale diabetic diet. might need placement. Subjective ROS Limited/Unobtainable: No Allergies: Coded Allergies: No Known Allergies (Unverified , 06/21/17) Objective Last 24 Hour Vital Signs Date Time Temp Pulse Resp B/P (MAP) Pulse Ox O2 Delivery O2 Flow Rate FiO2 06/24/17 12:46 98.0 79 18 147/80 96 98.0 06/24/17 08:16 188/96 06/24/17 08:00 98.1 77 19 188/96 98 Room Air 98.1 06/24/17 04:00 97.6 64 20 157/61 96 Room Air 97.6 06/23/17 23:55 97.2 62 20 134/60 98 Room Air 97.2 06/23/17 20:00 Room Air 06/23/17 20:00 98.1 69 20 151/81 96 98.1 06/23/17 16:00 97.8 69 19 154/71 97 97.8 Intake and Output 06/23/17 06/24/17 19:00 07:00 Intake Total 2635 ml 600 ml Balance 2635 ml 600 ml Intake Oral 635 ml 600 ml Other 2000 ml # Voids 3 4 # Bowel Movements 1 Objective General Appearance: WN/WD HEENT: normocephalic, atraumatic Respiratory/Chest: chest wall non-tender, lungs clear Cardiovascular: normal rate, regular rhythm Abdomen: normal bowel sounds, soft, non tender, non distended Genitourinary: normal external genitalia Extremities: no cyanosis Skin: no rash 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, no motor/sensory deficits, alert Laboratory Tests 06/24/17 08:45: White Blood Count 7.4, Red Blood Count 5.73, Hemoglobin 16.5, Hematocrit 48.0, Mean Corpuscular Volume 84, Mean Corpuscular Hemoglobin 28.8, Mean Corpuscular Hemoglobin Concent 34.4, Red Cell Distribution Width 12.1, Platelet Count 197, Mean Platelet Volume 6.8, Neutrophils (%) (Auto) 73.7, Lymphocytes (%) (Auto) 17.7L, Monocytes (%) (Auto) 6.0, Eosinophils (%) (Auto) 1.9, Basophils (%) (Auto ) 0.8, Sodium Level 136, Potassium Level 3.9, Chloride Level 101, Carbon Dioxide Level 28, Anion Gap 8, Blood Urea Nitrogen 14, Creatinine 1.1, Estimat Glomerular Filtration Rate , Glucose Level 146H, Calcium Level 8.8 Current Medications Medications (Trade) Dose Ordered Sig/Gracie Route PRN Reason Start Time Stop Time Status Last Admin Dose Admin Acetaminophen (Tylenol) 650 mg Q4H PRN ORAL fever 06/21/17 22:30 07/21/17 22:29 Al Hydroxide/Mg Hydroxide (Mylanta II) 30 ml Q6H PRN ORAL dyspepsia 06/21/17 22:30 07/21/17 22:29 Clonidine HCl (Catapres Tab) 0.1 mg Q6H PRN ORAL For High Blood Pressure 06/22/17 07:00 07/22/17 06:59 06/24/17 08:16 Dextrose (Dextrose 50%) STAT PRN IV Hypoglycemia 06/21/17 22:30 07/21/17 22:29 Dextrose (Dextrose 50%) STAT PRN IV Hypoglycemia 06/21/17 22:30 07/21/17 22:29 Diazepam (Valium) 10 mg Q6H PRN ORAL For Anxiety 06/22/17 13:00 06/29/17 12:59 06/22/17 15:50 Donepezil HCl (Aricept) 10 mg QHS ORAL 06/23/17 21:00 07/23/17 20:59 06/23/17 20:51 Fluoxetine HCl (PROzac) 20 mg DAILY ORAL 06/23/17 09:00 07/23/17 08:59 06/24/17 08:16 Folic Acid (Folate) 1 mg DAILY ORAL 06/23/17 09:00 07/23/17 08:59 06/24/17 08:16 Heparin Sodium (Porcine) (Heparin 5000 units/ml) 5,000 units EVERY 12 HOURS SUBQ 06/22/17 09:00 07/22/17 08:59 06/24/17 08:19 Hydrochlorothiazide (Hydrodiuril) 12.5 mg DAILY ORAL 06/23/17 15:00 07/23/17 14:59 06/24/17 08:16 Insulin Aspart (NovoLOG) BEFORE MEALS AND HS SUBQ 06/22/17 06:30 07/22/17 06:29 06/24/17 06:06 Metformin HCl (Glucophage) 1,000 mg BIAC ORAL 06/23/17 16:30 07/23/17 16:29 06/24/17 06:05 Morphine Sulfate (Morphine Sulfate) 1 mg Q4H PRN IVP Pain 06/22/17 13:00 06/28/17 12:59 Ondansetron HCl (Zofran) 4 mg Q6H PRN IVP Nausea & Vomiting 06/21/17 22:30 07/21/17 22:29 Polyethylene Glycol (Miralax) 17 gm HSPRN PRN ORAL Constipation 06/21/17 22:30 07/21/17 22:29 Thiamine HCl (Vitamin B1) 100 mg DAILY ORAL 06/23/17 09:00 07/23/17 08:59 06/24/17 08:16 Zolpidem Tartrate (Ambien) 5 mg HSPRN PRN ORAL Insomnia 06/21/17 22:30 06/28/17 22:29 06/22/17 20:51 Vimal Campbell MD Jun 24, 2017 14:09
[2017-06-24 16:00] VITALS: BP 121/71
--- NOTE | 2017-06-24 16:17 | Internal Med Progress Note ---
Subjective Date of Service: Jun 24, 2017 Physician Name Jordan Murrieta Attending Physician Warren Salazar MD Current Medications Medications (Trade) Dose Ordered Sig/Gracie Route PRN Reason Start Time Stop Time Status Last Admin Dose Admin Acetaminophen (Tylenol) 650 mg Q4H PRN ORAL fever 06/21/17 22:30 07/21/17 22:29 Al Hydroxide/Mg Hydroxide (Mylanta II) 30 ml Q6H PRN ORAL dyspepsia 06/21/17 22:30 07/21/17 22:29 Clonidine HCl (Catapres Tab) 0.1 mg Q6H PRN ORAL For High Blood Pressure 06/22/17 07:00 07/22/17 06:59 06/24/17 08:16 Dextrose (Dextrose 50%) STAT PRN IV Hypoglycemia 06/21/17 22:30 07/21/17 22:29 Dextrose (Dextrose 50%) STAT PRN IV Hypoglycemia 06/21/17 22:30 07/21/17 22:29 Diazepam (Valium) 10 mg Q6H PRN ORAL For Anxiety 06/22/17 13:00 06/29/17 12:59 06/22/17 15:50 Donepezil HCl (Aricept) 10 mg QHS ORAL 06/23/17 21:00 07/23/17 20:59 06/23/17 20:51 Fluoxetine HCl (PROzac) 20 mg DAILY ORAL 06/23/17 09:00 07/23/17 08:59 06/24/17 08:16 Folic Acid (Folate) 1 mg DAILY ORAL 06/23/17 09:00 07/23/17 08:59 06/24/17 08:16 Heparin Sodium (Porcine) (Heparin 5000 units/ml) 5,000 units EVERY 12 HOURS SUBQ 06/22/17 09:00 07/22/17 08:59 06/24/17 08:19 Hydrochlorothiazide (Hydrodiuril) 12.5 mg DAILY ORAL 06/23/17 15:00 07/23/17 14:59 06/24/17 08:16 Insulin Aspart (NovoLOG) BEFORE MEALS AND HS SUBQ 06/22/17 06:30 07/22/17 06:29 06/24/17 06:06 Metformin HCl (Glucophage) 1,000 mg BIAC ORAL 06/23/17 16:30 07/23/17 16:29 06/24/17 06:05 Morphine Sulfate (Morphine Sulfate) 1 mg Q4H PRN IVP Pain 06/22/17 13:00 06/28/17 12:59 Ondansetron HCl (Zofran) 4 mg Q6H PRN IVP Nausea & Vomiting 06/21/17 22:30 07/21/17 22:29 Polyethylene Glycol (Miralax) 17 gm HSPRN PRN ORAL Constipation 06/21/17 22:30 07/21/17 22:29 Thiamine HCl (Vitamin B1) 100 mg DAILY ORAL 06/23/17 09:00 07/23/17 08:59 06/24/17 08:16 Zolpidem Tartrate (Ambien) 5 mg HSPRN PRN ORAL Insomnia 06/21/17 22:30 06/28/17 22:29 06/22/17 20:51 Allergies: Coded Allergies: No Known Allergies (Unverified , 06/21/17) ROS Limited/Unobtainable: No Constitutional: Reports: no symptoms HEENT: Reports: no symptoms Cardiovascular: Reports: no symptoms Respiratory: Reports: no symptoms Gastrointestinal/Abdominal: Reports: no symptoms Genitourinary: Reports: no symptoms Neurologic/Psychiatric: Reports: no symptoms Subjective 81 YO M admitted with trip and fall injuries. Cover for [facility] -Dr Salazar. Patient's roomate, Wagner is here, states patient wandered away from home. Await SNF eval Objective Last Vital Signs Date Time Temp Pulse Resp B/P (MAP) Pulse Ox O2 Delivery O2 Flow Rate FiO2 06/24/17 16:00 98.4 65 20 121/71 99 Room Air 98.4 Laboratory Tests Test 06/24/17 08:45 White Blood Count 7.4 K/UL (4.8-10.8) Red Blood Count 5.73 M/UL (4.70-6.10) Hemoglobin 16.5 G/DL (14.2-18.0) Hematocrit 48.0 % (42.0-52.0) Mean Corpuscular Volume 84 FL (80-99) Mean Corpuscular Hemoglobin 28.8 PG (27.0-31.0) Mean Corpuscular Hemoglobin Concent 34.4 G/DL (32.0-36.0) Red Cell Distribution Width 12.1 % (11.6-14.8) Platelet Count 197 K/UL (150-450) Mean Platelet Volume 6.8 FL (6.5-10.1) Neutrophils (%) (Auto) 73.7 % (45.0-75.0) Lymphocytes (%) (Auto) 17.7 % (20.0-45.0) L Monocytes (%) (Auto) 6.0 % (1.0-10.0) Eosinophils (%) (Auto) 1.9 % (0.0-3.0) Basophils (%) (Auto) 0.8 % (0.0-2.0) Sodium Level 136 MMOL/L (136-145) Potassium Level 3.9 MMOL/L (3.5-5.1) Chloride Level 101 MMOL/L (98-107) Carbon Dioxide Level 28 MMOL/L (21-32) Anion Gap 8 mmol/L (5-15) Blood Urea Nitrogen 14 mg/dL (7-18) Creatinine 1.1 MG/DL (0.55-1.30) Estimat Glomerular Filtration Rate mL/min (>60) Glucose Level 146 MG/DL (74-106) H Calcium Level 8.8 MG/DL (8.5-10.1) Intake and Output 06/23/17 06/24/17 19:00 07:00 Intake Total 2635 ml 600 ml Balance 2635 ml 600 ml Intake Oral 635 ml 600 ml Other 2000 ml # Voids 3 4 # Bowel Movements 1 Objective General Appearance: WD/WN, no apparent distress, alert EENT: PERRL/EOMI, normal ENT inspection, TMs normal Neck: non-tender, normal alignment, supple, normal inspection Cardiovascular: normal peripheral pulses, normal rate, regular rhythm, no gallop/murmur, no JVD Respiratory/Chest: chest wall non-tender, lungs clear, normal breath sounds, no respiratory distress, no accessory muscle use Abdomen: normal bowel sounds, non tender, soft, no organomegaly, no mass Extremities: normal range of motion, non-tender 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
[2017-06-24 20:00] VITALS: BP 166/81
[2017-06-24] MEDS: Donepezil 10mg tab ORAL SCH (20:46)
[2017-06-25] VITALS (8 sets, daily range): BP systolic 128–174; BP diastolic 58–84
[2017-06-25] MEDS: metFORMIN 500mg tab ORAL SCH ×2 (06:02→16:57)
[2017-06-25] MEDS: NovoLOG Insulin Flexpen SUBQ SCH ×4 (06:03→20:57)
[2017-06-25 06:33] LABS: BASOPHILS % (AUTO) 0.5 % (0.0-2.0); EOSINOPHILS % (AUTO) 0.8 % (0.0-3.0); HEMOGLOBIN 16.4 G/DL (14.2-18.0); LYMPHOCYTES % (AUTO) 12.1 % (20.0-45.0); MEAN CORPUSCULAR VOLUME 83 FL (80-99); NEUTROPHILS % (AUTO) 80.5 % (45.0-75.0); PLATELET COUNT 190 K/UL (150-450); RED BLOOD COUNT 5.57 M/UL (4.70-6.10); RED CELL DISTRIBUTION WIDTH 11.9 % (11.6-14.8); WHITE BLOOD COUNT 8.3 K/UL (4.8-10.8)
[2017-06-25 07:06] LABS: ALANINE AMINOTRANSFERASE 40 U/L (12-78); ALBUMIN/GLOBULIN RATIO 0.8 (1.0-2.7); ALKALINE PHOSPHATASE 77 U/L (46-116); ANION GAP 7 mmol/L (5-15); ASPARTATE AMINO TRANSFERASE 39 U/L (15-37); BILIRUBIN,TOTAL 0.4 MG/DL (0.2-1.0); BLOOD UREA NITROGEN 14 mg/dL (7-18); CALCIUM 8.9 MG/DL (8.5-10.1); CARBON DIOXIDE 27 MMOL/L (21-32); CHLORIDE 103 MMOL/L (98-107); POTASSIUM 3.6 MMOL/L (3.5-5.1); SODIUM 137 MMOL/L (136-145)
[2017-06-25] MEDS: Thiamine 100mg tab ORAL SCH (08:38)
[2017-06-25] MEDS: hydroCHLOROthiazide 12.5mg TAB ORAL SCH (08:38)
[2017-06-25] MEDS: Heparin 5000 units/ml inj SUBQ SCH ×2 (08:40→20:58)
--- NOTE | 2017-06-25 09:25 | Diagnostic Imaging Report ---
Indication: Dyspnea Technique: One view of the chest Comparison: none Findings: The lungs and pleural spaces are clear. Heart size is normal. The aorta is calcified Impression: No acute process
--- NOTE | 2017-06-25 11:19 | Internal Med Progress Note ---
Subjective Date of Service: Jun 25, 2017 Physician Name Jordan Murrieta Attending Physician Warren Salazar MD Current Medications Medications (Trade) Dose Ordered Sig/Gracie Route PRN Reason Start Time Stop Time Status Last Admin Dose Admin Acetaminophen (Tylenol) 650 mg Q4H PRN ORAL fever 06/21/17 22:30 07/21/17 22:29 Al Hydroxide/Mg Hydroxide (Mylanta II) 30 ml Q6H PRN ORAL dyspepsia 06/21/17 22:30 07/21/17 22:29 Clonidine HCl (Catapres Tab) 0.1 mg Q6H PRN ORAL For High Blood Pressure 06/22/17 07:00 07/22/17 06:59 06/24/17 20:48 Dextrose (Dextrose 50%) STAT PRN IV Hypoglycemia 06/21/17 22:30 07/21/17 22:29 Dextrose (Dextrose 50%) STAT PRN IV Hypoglycemia 06/21/17 22:30 07/21/17 22:29 Diazepam (Valium) 10 mg Q6H PRN ORAL For Anxiety 06/22/17 13:00 06/29/17 12:59 06/22/17 15:50 Donepezil HCl (Aricept) 10 mg QHS ORAL 06/23/17 21:00 07/23/17 20:59 06/24/17 20:46 Fluoxetine HCl (PROzac) 20 mg DAILY ORAL 06/23/17 09:00 07/23/17 08:59 06/25/17 08:38 Folic Acid (Folate) 1 mg DAILY ORAL 06/23/17 09:00 07/23/17 08:59 06/25/17 08:40 Heparin Sodium (Porcine) (Heparin 5000 units/ml) 5,000 units EVERY 12 HOURS SUBQ 06/22/17 09:00 07/22/17 08:59 06/25/17 08:40 Hydrochlorothiazide (Hydrodiuril) 12.5 mg DAILY ORAL 06/23/17 15:00 07/23/17 14:59 06/25/17 08:38 Insulin Aspart (NovoLOG) BEFORE MEALS AND HS SUBQ 06/22/17 06:30 07/22/17 06:29 06/25/17 06:03 Metformin HCl (Glucophage) 1,000 mg BIAC ORAL 06/23/17 16:30 07/23/17 16:29 06/25/17 06:02 Morphine Sulfate (Morphine Sulfate) 1 mg Q4H PRN IVP Pain 06/22/17 13:00 06/28/17 12:59 Ondansetron HCl (Zofran) 4 mg Q6H PRN IVP Nausea & Vomiting 06/21/17 22:30 07/21/17 22:29 Polyethylene Glycol (Miralax) 17 gm HSPRN PRN ORAL Constipation 06/21/17 22:30 07/21/17 22:29 Thiamine HCl (Vitamin B1) 100 mg DAILY ORAL 06/23/17 09:00 07/23/17 08:59 06/25/17 08:38 Zolpidem Tartrate (Ambien) 5 mg HSPRN PRN ORAL Insomnia 06/21/17 22:30 06/28/17 22:29 06/22/17 20:51 Allergies: Coded Allergies: No Known Allergies (Unverified , 06/21/17) ROS Limited/Unobtainable: No Constitutional: Reports: no symptoms HEENT: Reports: no symptoms Cardiovascular: Reports: no symptoms Respiratory: Reports: no symptoms Gastrointestinal/Abdominal: Reports: no symptoms Genitourinary: Reports: no symptoms Neurologic/Psychiatric: Reports: no symptoms Subjective 81 YO M admitted with trip and fall injuries. Cover for Int Thomas -Dr Salazar. Patient's roomate, [facility] patient wandered away from home. Await SNF eval Objective Last Vital Signs Date Time Temp Pulse Resp B/P (MAP) Pulse Ox O2 Delivery O2 Flow Rate FiO2 06/25/17 08:00 97.3 72 20 143/77 95 Room Air 97.3 Laboratory Tests Test 06/25/17 05:00 White Blood Count 8.3 K/UL (4.8-10.8) Red Blood Count 5.57 M/UL (4.70-6.10) Hemoglobin 16.4 G/DL (14.2-18.0) Hematocrit 46.0 % (42.0-52.0) Mean Corpuscular Volume 83 FL (80-99) Mean Corpuscular Hemoglobin 29.5 PG (27.0-31.0) Mean Corpuscular Hemoglobin Concent 35.7 G/DL (32.0-36.0) Red Cell Distribution Width 11.9 % (11.6-14.8) Platelet Count 190 K/UL (150-450) Mean Platelet Volume 7.1 FL (6.5-10.1) Neutrophils (%) (Auto) 80.5 % (45.0-75.0) H Lymphocytes (%) (Auto) 12.1 % (20.0-45.0) L Monocytes (%) (Auto) 6.0 % (1.0-10.0) Eosinophils (%) (Auto) 0.8 % (0.0-3.0) Basophils (%) (Auto) 0.5 % (0.0-2.0) Sodium Level 137 MMOL/L (136-145) Potassium Level 3.6 MMOL/L (3.5-5.1) Chloride Level 103 MMOL/L (98-107) Carbon Dioxide Level 27 MMOL/L (21-32) Anion Gap 7 mmol/L (5-15) Blood Urea Nitrogen 14 mg/dL (7-18) Creatinine 1.0 MG/DL (0.55-1.30) Estimat Glomerular Filtration Rate mL/min (>60) Glucose Level 128 MG/DL (74-106) H Calcium Level 8.9 MG/DL (8.5-10.1) Total Bilirubin 0.4 MG/DL (0.2-1.0) Aspartate Amino Transf (AST/SGOT) 39 U/L (15-37) H Alanine Aminotransferase (ALT/SGPT) 40 U/L (12-78) Alkaline Phosphatase 77 U/L (46-116) Pro-B-Type Natriuretic Peptide 274 pg/mL (0-125) H Total Protein 6.8 G/DL (6.4-8.2) Albumin 3.0 G/DL (3.4-5.0) L Globulin 3.8 g/dL Albumin/Globulin Ratio 0.8 (1.0-2.7) L Intake and Output 06/24/17 06/25/17 19:00 07:00 Intake Total 1840 ml 400 ml Balance 1840 ml 400 ml Intake Oral 240 ml 400 ml Other 1600 ml # Voids 3 3 # Bowel Movements 2 Objective General Appearance: WD/WN, no apparent distress, alert EENT: PERRL/EOMI, normal ENT inspection, TMs normal Neck: non-tender, normal alignment, supple, normal inspection Cardiovascular: normal peripheral pulses, normal rate, regular rhythm, no gallop/murmur, no JVD Respiratory/Chest: chest wall non-tender, lungs clear, normal breath sounds, no respiratory distress, no accessory muscle use Abdomen: normal bowel sounds, non tender, soft, no organomegaly, no mass Extremities: normal range of motion, non-tender 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 JORDAN MURRIETA Jun 25, 2017 11:19
--- NOTE | 2017-06-25 13:44 | Pulmonology Progress Note ---
Assessment/Plan Problems: (1) Acute encephalopathy (2) ATN (acute tubular necrosis) (3) Facial laceration (4) Contusion of head (5) Diabetes mellitus Assessment/Plan improving wound care check electrolytes social service consult sliding scale diabetic diet. social sevice not appreciated Subjective ROS Limited/Unobtainable: No Constitutional: Reports: no symptoms HEENT: Repors: no symptoms Respiratory: Reports: no symptoms Allergies: Coded Allergies: No Known Allergies (Unverified , 06/21/17) Objective Last 24 Hour Vital Signs Date Time Temp Pulse Resp B/P (MAP) Pulse Ox O2 Delivery O2 Flow Rate FiO2 06/25/17 12:00 97.3 72 20 174/84 96 Room Air 97.3 06/25/17 08:00 97.3 72 20 143/77 95 Room Air 97.3 06/25/17 04:00 97.6 66 18 145/67 94 Room Air 97.6 06/25/17 00:00 98.0 66 18 146/72 98 Room Air 98.0 06/24/17 20:48 166/81 06/24/17 20:00 97.6 67 18 166/81 97 Room Air 97.6 06/24/17 16:00 98.4 65 20 121/71 99 Room Air 98.4 Intake and Output 06/24/17 06/25/17 19:00 07:00 Intake Total 1840 ml 400 ml Balance 1840 ml 400 ml Intake Oral 240 ml 400 ml Other 1600 ml # Voids 3 3 # Bowel Movements 2 Objective General Appearance: WN/WD HEENT: normocephalic, atraumatic Respiratory/Chest: chest wall non-tender, lungs clear Cardiovascular: normal rate, regular rhythm Abdomen: normal bowel sounds, soft, non tender, non distended Genitourinary: normal external genitalia Extremities: no cyanosis Skin: no rash 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, no motor/sensory deficits, alert Laboratory Tests 06/25/17 05:00: White Blood Count 8.3, Red Blood Count 5.57, Hemoglobin 16.4, Hematocrit 46.0, Mean Corpuscular Volume 83, Mean Corpuscular Hemoglobin 29.5, Mean Corpuscular Hemoglobin Concent 35.7, Red Cell Distribution Width 11.9, Platelet Count 190, Mean Platelet Volume 7.1, Neutrophils (%) (Auto) 80.5H, Lymphocytes (%) (Auto) 12.1L, Monocytes (%) (Auto) 6.0, Eosinophils (%) (Auto) 0.8, Basophils (%) (Auto ) 0.5, Sodium Level 137, Potassium Level 3.6, Chloride Level 103, Carbon Dioxide Level 27, Anion Gap 7, Blood Urea Nitrogen 14, Creatinine 1.0, Estimat Glomerular Filtration Rate , Glucose Level 128H, Calcium Level 8.9, Total Bilirubin 0.4, Aspartate Amino Transf (AST/SGOT) 39H, Alanine Aminotransferase ( ALT/SGPT) 40, Alkaline Phosphatase 77, Pro-B-Type Natriuretic Peptide 274H, Total Protein 6.8, Albumin 3.0L, Globulin 3.8, Albumin/Globulin Ratio 0.8L Current Medications Medications (Trade) Dose Ordered Sig/Gracie Route PRN Reason Start Time Stop Time Status Last Admin Dose Admin Acetaminophen (Tylenol) 650 mg Q4H PRN ORAL fever 06/21/17 22:30 07/21/17 22:29 Al Hydroxide/Mg Hydroxide (Mylanta II) 30 ml Q6H PRN ORAL dyspepsia 06/21/17 22:30 07/21/17 22:29 Clonidine HCl (Catapres Tab) 0.1 mg Q6H PRN ORAL For High Blood Pressure 06/22/17 07:00 07/22/17 06:59 06/24/17 20:48 Dextrose (Dextrose 50%) STAT PRN IV Hypoglycemia 06/21/17 22:30 07/21/17 22:29 Dextrose (Dextrose 50%) STAT PRN IV Hypoglycemia 06/21/17 22:30 07/21/17 22:29 Diazepam (Valium) 10 mg Q6H PRN ORAL For Anxiety 06/22/17 13:00 06/29/17 12:59 06/22/17 15:50 Donepezil HCl (Aricept) 10 mg QHS ORAL 06/23/17 21:00 07/23/17 20:59 06/24/17 20:46 Fluoxetine HCl (PROzac) 20 mg DAILY ORAL 06/23/17 09:00 07/23/17 08:59 06/25/17 08:38 Folic Acid (Folate) 1 mg DAILY ORAL 06/23/17 09:00 07/23/17 08:59 06/25/17 08:40 Heparin Sodium (Porcine) (Heparin 5000 units/ml) 5,000 units EVERY 12 HOURS SUBQ 06/22/17 09:00 07/22/17 08:59 06/25/17 08:40 Hydrochlorothiazide (Hydrodiuril) 12.5 mg DAILY ORAL 06/23/17 15:00 07/23/17 14:59 06/25/17 08:38 Insulin Aspart (NovoLOG) BEFORE MEALS AND HS SUBQ 06/22/17 06:30 07/22/17 06:29 06/25/17 12:15 Metformin HCl (Glucophage) 1,000 mg BIAC ORAL 06/23/17 16:30 07/23/17 16:29 06/25/17 06:02 Morphine Sulfate (Morphine Sulfate) 1 mg Q4H PRN IVP Pain 06/22/17 13:00 06/28/17 12:59 Ondansetron HCl (Zofran) 4 mg Q6H PRN IVP Nausea & Vomiting 06/21/17 22:30 07/21/17 22:29 Polyethylene Glycol (Miralax) 17 gm HSPRN PRN ORAL Constipation 06/21/17 22:30 07/21/17 22:29 Thiamine HCl (Vitamin B1) 100 mg DAILY ORAL 06/23/17 09:00 07/23/17 08:59 06/25/17 08:38 Zolpidem Tartrate (Ambien) 5 mg HSPRN PRN ORAL Insomnia 06/21/17 22:30 06/28/17 22:29 06/22/17 20:51 Vimal Campbell MD Jun 25, 2017 13:44
[2017-06-25] MEDS: Donepezil 10mg tab ORAL SCH (20:56)
--- NOTE | 2017-06-25 23:48 | General Progress Note ---
Subjective Allergies: Coded Allergies: No Known Allergies (Unverified , 06/21/17) Objective Last 24 Hour Vital Signs Date Time Temp Pulse Resp B/P (MAP) Pulse Ox O2 Delivery O2 Flow Rate FiO2 06/25/17 20:00 97.6 64 19 129/71 98 Room Air 97.6 06/25/17 17:50 69 128/58 06/25/17 16:57 165/81 06/25/17 16:00 97.2 79 20 165/81 96 Room Air 97.2 06/25/17 13:00 72 155/79 06/25/17 12:00 97.3 72 20 174/84 96 Room Air 97.3 06/25/17 08:00 97.3 72 20 143/77 95 Room Air 97.3 06/25/17 04:00 97.6 66 18 145/67 94 Room Air 97.6 06/25/17 00:00 98.0 66 18 146/72 98 Room Air 98.0 Intake and Output 06/24/17 06/25/17 19:00 07:00 Intake Total 1840 ml 400 ml Balance 1840 ml 400 ml Intake Oral 240 ml 400 ml Other 1600 ml # Voids 3 3 # Bowel Movements 2 Laboratory Tests 06/25/17 05:00: White Blood Count 8.3, Red Blood Count 5.57, Hemoglobin 16.4, Hematocrit 46.0, Mean Corpuscular Volume 83, Mean Corpuscular Hemoglobin 29.5, Mean Corpuscular Hemoglobin Concent 35.7, Red Cell Distribution Width 11.9, Platelet Count 190, Mean Platelet Volume 7.1, Neutrophils (%) (Auto) 80.5H, Lymphocytes (%) (Auto) 12.1L, Monocytes (%) (Auto) 6.0, Eosinophils (%) (Auto) 0.8, Basophils (%) (Auto ) 0.5, Sodium Level 137, Potassium Level 3.6, Chloride Level 103, Carbon Dioxide Level 27, Anion Gap 7, Blood Urea Nitrogen 14, Creatinine 1.0, Estimat Glomerular Filtration Rate , Glucose Level 128H, Calcium Level 8.9, Total Bilirubin 0.4, Aspartate Amino Transf (AST/SGOT) 39H, Alanine Aminotransferase ( ALT/SGPT) 40, Alkaline Phosphatase 77, Pro-B-Type Natriuretic Peptide 274H, Total Protein 6.8, Albumin 3.0L, Globulin 3.8, Albumin/Globulin Ratio 0.8L Height (Feet): 5 Height (Inches): 7.00 Weight (Pounds): 173 Cecilio Singh M.D. Jun 25, 2017 23:48
[2017-06-26 00:29] VITALS: BP 202/94
[2017-06-26 01:45] VITALS: BP 157/68
[2017-06-26 04:00] VITALS: BP 152/70
[2017-06-26] MEDS: metFORMIN 500mg tab ORAL SCH (06:05)
[2017-06-26] MEDS: NovoLOG Insulin Flexpen SUBQ SCH ×2 (06:05→12:23)
[2017-06-26 08:00] VITALS: BP 200/97
[2017-06-26 08:09] LABS: BASOPHILS % (AUTO) 0.5 % (0.0-2.0); EOSINOPHILS % (AUTO) 0.4 % (0.0-3.0); HEMATOCRIT 47.8 % (42.0-52.0); HEMOGLOBIN 16.8 G/DL (14.2-18.0); LYMPHOCYTES % (AUTO) 15.1 % (20.0-45.0); MEAN CORPUSCULAR VOLUME 83 FL (80-99); MONOCYTES % (AUTO) 7.7 % (1.0-10.0); NEUTROPHILS % (AUTO) 76.4 % (45.0-75.0); PLATELET COUNT 208 K/UL (150-450); RED BLOOD COUNT 5.74 M/UL (4.70-6.10); RED CELL DISTRIBUTION WIDTH 12.1 % (11.6-14.8)
[2017-06-26 08:31] LABS: ANION GAP 5 mmol/L (5-15); BLOOD UREA NITROGEN 12 mg/dL (7-18); CALCIUM 9.1 MG/DL (8.5-10.1); CARBON DIOXIDE 32 MMOL/L (21-32); CHLORIDE 101 MMOL/L (98-107); CREATININE 1.2 MG/DL (0.55-1.30); POTASSIUM 4.1 MMOL/L (3.5-5.1); SODIUM 138 MMOL/L (136-145)
[2017-06-26 08:56] VITALS: BP 143/71
[2017-06-26] MEDS: Thiamine 100mg tab ORAL SCH (09:05)
[2017-06-26] MEDS: hydroCHLOROthiazide 12.5mg TAB ORAL SCH (09:05)
[2017-06-26] MEDS: Heparin 5000 units/ml inj SUBQ SCH (09:07)
[2017-06-26 12:00] VITALS: BP 155/71
--- NOTE | 2017-06-26 15:17 | Pulmonology Progress Note ---
Assessment/Plan Problems: (1) Acute encephalopathy (2) ATN (acute tubular necrosis) (3) Facial laceration (4) Contusion of head (5) Diabetes mellitus Assessment/Plan improving wound care check electrolytes social service consult sliding scale diabetic diet. social sevice not appreciated dc home today with roommate, walker arranged Subjective ROS Limited/Unobtainable: No Constitutional: Reports: no symptoms HEENT: Repors: no symptoms Respiratory: Reports: no symptoms Allergies: Coded Allergies: No Known Allergies (Unverified , 06/21/17) Objective Last 24 Hour Vital Signs Date Time Temp Pulse Resp B/P (MAP) Pulse Ox O2 Delivery O2 Flow Rate FiO2 06/26/17 12:00 97.1 62 2 155/71 96 Room Air 97.1 06/26/17 12:00 97.1 62 20 155/71 96 97.1 06/26/17 08:56 98.1 65 18 143/71 97 Room Air 98.1 06/26/17 08:00 97.2 62 20 200/97 97 97.2 06/26/17 04:00 96.8 58 20 152/70 97 Room Air 96.8 06/26/17 01:45 68 19 157/68 94 Room Air 06/26/17 00:33 202/94 06/26/17 00:29 98.2 64 20 202/94 94 Room Air 98.2 06/25/17 20:00 97.6 64 19 129/71 98 Room Air 97.6 06/25/17 17:50 69 128/58 06/25/17 16:57 165/81 06/25/17 16:00 97.2 79 20 165/81 96 Room Air 97.2 Intake and Output 06/25/17 06/26/17 19:00 07:00 Intake Total 900 ml 400 ml Balance 900 ml 400 ml Intake Oral 900 ml 400 ml # Voids 7 2 # Bowel Movements 2 Objective General Appearance: WN/WD HEENT: normocephalic, atraumatic Respiratory/Chest: chest wall non-tender, lungs clear Cardiovascular: normal rate, regular rhythm Abdomen: normal bowel sounds, soft, non tender, non distended Genitourinary: normal external genitalia Extremities: no cyanosis Skin: no rash 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, no motor/sensory deficits, alert Laboratory Tests 06/26/17 07:20: White Blood Count 8.0, Red Blood Count 5.74, Hemoglobin 16.8, Hematocrit 47.8, Mean Corpuscular Volume 83, Mean Corpuscular Hemoglobin 29.3, Mean Corpuscular Hemoglobin Concent 35.2, Red Cell Distribution Width 12.1, Platelet Count 208, Mean Platelet Volume 7.2, Neutrophils (%) (Auto) 76.4H, Lymphocytes (%) (Auto) 15.1L, Monocytes (%) (Auto) 7.7, Eosinophils (%) (Auto) 0.4, Basophils (%) (Auto ) 0.5, Sodium Level 138, Potassium Level 4.1, Chloride Level 101, Carbon Dioxide Level 32, Anion Gap 5, Blood Urea Nitrogen 12, Creatinine 1.2, Estimat Glomerular Filtration Rate , Glucose Level 119H, Calcium Level 9.1 Current Medications Medications (Trade) Dose Ordered Sig/Gracie Route PRN Reason Start Time Stop Time Status Last Admin Dose Admin Acetaminophen (Tylenol) 650 mg Q4H PRN ORAL fever 06/21/17 22:30 07/21/17 22:29 Al Hydroxide/Mg Hydroxide (Mylanta II) 30 ml Q6H PRN ORAL dyspepsia 06/21/17 22:30 07/21/17 22:29 Clonidine HCl (Catapres Tab) 0.1 mg Q6H PRN ORAL For High Blood Pressure 06/22/17 07:00 07/22/17 06:59 06/26/17 00:33 Dextrose (Dextrose 50%) STAT PRN IV Hypoglycemia 06/21/17 22:30 07/21/17 22:29 Dextrose (Dextrose 50%) STAT PRN IV Hypoglycemia 06/21/17 22:30 07/21/17 22:29 Diazepam (Valium) 10 mg Q6H PRN ORAL For Anxiety 06/22/17 13:00 06/29/17 12:59 06/22/17 15:50 Donepezil HCl (Aricept) 10 mg QHS ORAL 06/23/17 21:00 07/23/17 20:59 06/25/17 20:56 Fluoxetine HCl (PROzac) 20 mg DAILY ORAL 06/23/17 09:00 07/23/17 08:59 06/26/17 09:05 Folic Acid (Folate) 1 mg DAILY ORAL 06/23/17 09:00 5/14/18 08:59 06/26/17 09:08 Heparin Sodium (Porcine) (Heparin 5000 units/ml) 5,000 units EVERY 12 HOURS SUBQ 06/22/17 09:00 07/22/17 08:59 06/26/17 09:07 Hydrochlorothiazide (Hydrodiuril) 12.5 mg DAILY ORAL 06/23/17 15:00 07/23/17 14:59 06/26/17 09:05 Insulin Aspart (NovoLOG) BEFORE MEALS AND HS SUBQ 06/22/17 06:30 07/22/17 06:29 06/26/17 12:23 Metformin HCl (Glucophage) 1,000 mg BIAC ORAL 06/23/17 16:30 07/23/17 16:29 06/26/17 06:05 Morphine Sulfate (Morphine Sulfate) 1 mg Q4H PRN IVP Pain 06/22/17 13:00 06/28/17 12:59 Ondansetron HCl (Zofran) 4 mg Q6H PRN IVP Nausea & Vomiting 06/21/17 22:30 07/21/17 22:29 06/26/17 01:09 Polyethylene Glycol (Miralax) 17 gm HSPRN PRN ORAL Constipation 06/21/17 22:30 07/21/17 22:29 Thiamine HCl (Vitamin B1) 100 mg DAILY ORAL 06/23/17 09:00 07/23/17 08:59 06/26/17 09:05 Zolpidem Tartrate (Ambien) 5 mg HSPRN PRN ORAL Insomnia 06/21/17 22:30 06/28/17 22:29 06/22/17 20:51 Vimal Campbell MD Jun 26, 2017 15:17
--- NOTE | 2017-06-26 17:16 | Internal Med Progress Note ---
Subjective Date of Service: Jun 26, 2017 Physician Name Hemal Murrieta Attending Physician Warren Salazar MD Allergies: Coded Allergies: No Known Allergies (Unverified , 06/21/17) ROS Limited/Unobtainable: No Constitutional: Reports: no symptoms HEENT: Reports: no symptoms Cardiovascular: Reports: no symptoms Respiratory: Reports: no symptoms Gastrointestinal/Abdominal: Reports: no symptoms Genitourinary: Reports: no symptoms Neurologic/Psychiatric: Reports: no symptoms Subjective 81 YO M admitted with trip and fall injuries. Cover for Int Med -Dr Salazar. Patient's roomate, [facility] patient wandered away from home. Await discharge with home health today Objective Last Vital Signs Date Time Temp Pulse Resp B/P (MAP) Pulse Ox O2 Delivery O2 Flow Rate FiO2 06/26/17 12:00 97.1 62 2 155/71 96 Room Air 97.1 Laboratory Tests Test 06/26/17 07:20 White Blood Count 8.0 K/UL (4.8-10.8) Red Blood Count 5.74 M/UL (4.70-6.10) Hemoglobin 16.8 G/DL (14.2-18.0) Hematocrit 47.8 % (42.0-52.0) Mean Corpuscular Volume 83 FL (80-99) Mean Corpuscular Hemoglobin 29.3 PG (27.0-31.0) Mean Corpuscular Hemoglobin Concent 35.2 G/DL (32.0-36.0) Red Cell Distribution Width 12.1 % (11.6-14.8) Platelet Count 208 K/UL (150-450) Mean Platelet Volume 7.2 FL (6.5-10.1) Neutrophils (%) (Auto) 76.4 % (45.0-75.0) H Lymphocytes (%) (Auto) 15.1 % (20.0-45.0) L Monocytes (%) (Auto) 7.7 % (1.0-10.0) Eosinophils (%) (Auto) 0.4 % (0.0-3.0) Basophils (%) (Auto) 0.5 % (0.0-2.0) Sodium Level 138 MMOL/L (136-145) Potassium Level 4.1 MMOL/L (3.5-5.1) Chloride Level 101 MMOL/L (98-107) Carbon Dioxide Level 32 MMOL/L (21-32) Anion Gap 5 mmol/L (5-15) Blood Urea Nitrogen 12 mg/dL (7-18) Creatinine 1.2 MG/DL (0.55-1.30) Estimat Glomerular Filtration Rate mL/min (>60) Glucose Level 119 MG/DL (74-106) H Calcium Level 9.1 MG/DL (8.5-10.1) Intake and Output 06/25/17 06/26/17 19:00 07:00 Intake Total 900 ml 400 ml Balance 900 ml 400 ml Intake Oral 900 ml 400 ml # Voids 7 2 # Bowel Movements 2 Objective General Appearance: WD/WN, no apparent distress, alert EENT: PERRL/EOMI, normal ENT inspection, TMs normal Neck: non-tender, normal alignment, supple, normal inspection Cardiovascular: normal peripheral pulses, normal rate, regular rhythm, no gallop/murmur, no JVD Respiratory/Chest: chest wall non-tender, lungs clear, normal breath sounds, no respiratory distress, no accessory muscle use Abdomen: normal bowel sounds, non tender, soft, no organomegaly, no mass Extremities: normal range of motion, non-tender 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
--- NOTE | 2017-06-28 12:24 | Discharge Summary ---
Discharge Summary Discharge Summary Discharge Summary DATE OF ADMISSION: 06/21/2017 DATE OF DISCHARGE: 06/26/2017 ATTENDING: Dr. Warren Salazar CONSULTANTS: Dr. Vimal Singh BRIEF HOSPITAL COURSE: Patient is an 81-year-old male who lives alone, came in with chief complaint of fall injury. The patient was coming through the door entering the house, and tripped while answering the door. The patient fell striking his face. He claimed to pass out, he was found by neighbor and he was taken by EMS to ED. He has medical history significant for diabetes mellitus and hypertension. On evaluation at ED he was found to have on upper lip laceration. Laceration was repaired at the emergency room. Head CT with chronic age-related changes, negative acute intracranial bleed or mass effect. Facial bone CT with evidence of soft tissue trauma on the upper lip. There was no acute bony trauma. He was admitted for evaluation of fall injury, and laceration on the lip. He was given IV fluids, blood sugars were monitored. He was started on Prozac. He has questionable history of alcohol abuse and was given thiamine, folate and Valium when necessary. Social service was called in to aid with patient placement. He was eventually discharged home with home health. FINAL DIAGNOSES: Acute encephalopathy Facial laceration secondary to fall Lip laceration status post repair Diabetes mellitus Acute tubular necrosis Alzheimer's dementia Hypertension Contusion of the hand DISPOSITION: Patient was discharged home with home health DISCHARGE MEDICATIONS: Refer to Discharge Medication List. DISCHARGE INSTRUCTIONS: Follow up with PCP in a week. I have been assigned to dictate discharge summary on this account, and I was not involved in the patient's management. Philomena Koch NP Jun 28, 2017 12:24
== END 2017-06-26 16:03 | disposition home or self-care (01) | DRG 604 ==
LOC: EDBD 20:20 → EDBEDREQ 22:28 → EDBEDREQSVC 22:28 → EMR 22:56 → 4W 23:08 → EDBEDREQ 23:26 → 4E 06-22 00:12
PROC: 0HQ1XZZ Repair Face Skin, External Approach (ICD-10-PCS; principal; 2017-06-21)
DX: S00.93XA Contusion of unspecified part of head, initial encounter (principal); G93.40 Encephalopathy, unspecified; N17.0 Acute kidney failure with tubular necrosis; S01.511A Laceration without foreign body of lip, initial encounter; S60.229A Contusion of unspecified hand, initial encounter; W01.0XXA Fall on same level from slipping, tripping and stumbling without subsequent striking against object, initial encounter; Y92.008 Other place in unspecified non-institutional (private) residence as the place of occurrence of the external cause; E11.9 Type 2 diabetes mellitus without complications; I10 Essential (primary) hypertension; G30.9 Alzheimer's disease, unspecified; F02.80 Dementia in other diseases classified elsewhere, unspecified severity, without behavioral disturbance, psychotic disturbance, mood disturbance, and anxiety
CPT/HCPCS: 36415; 70450; 70486; 71045; 80048; 80053; 80061; 82962; 83735; 83880; 84100; 85025; 85610; 85730; 99285; J1815; J2405; J8499